=== PATIENT | female | born 1955 | race Caucasian/White ===

== ENCOUNTER → 2018-11-14 | Outpatient (CLI) | payer OTHER ==
[~2018-11-14] MED LIST: ALL DAY ALLERGY10 MG PO; Amitriptyline H10 MG PO; BACTRIM DS 8001 TA1 PO; CYMBALTA60 MG PO; DIOVAN160 MG PO; FLOMAX0.4 MG PO; FLUTICAS P0.05 MG/AC NS; LORAZEPAM0.5 MG PO; LYRICA100 MG PO; MEDROL DOSEPAK4 MG PO; METFORMIN HCL500 MG PO; MYSOLINE50 MG PO; PARAFON FORTE500 MG PO; PERCOCET 325 MG1 TA2 PO; PERCOCET 500 MG1 TAB PO; PREDNICOT20 MG PO; PRINIVIL20 MG PO; PROPRANOLOL10 MG PO; PROTONIX40 MG PO; ROPINIROLE HYD0.5 MG PO; WARFARIN SOD2 MG PO; ZOFRAN ODT4 MG SL; ZOFRAN ODT8 MG PO
== END | disposition home or self-care (01) ==
LOC: MAMMO 15:00
DX: Z12.31 Encounter for screening mammogram for malignant neoplasm of breast (principal); E11.42 Type 2 diabetes mellitus with diabetic polyneuropathy; I82.409 Acute embolism and thrombosis of unspecified deep veins of unspecified lower extremity; G25.0 Essential tremor

== ENCOUNTER 2020-10-15 17:14 | Emergency (ER) | payer OTHER ==
[~2020-10-15] VITALS: Ht 172.7 cm; Wt 145.1 kg
[~2020-10-15 17:14] MED LIST changes: +FLONASE ALLERG9.9 ML NAS; -FLUTICAS P0.05 MG/AC NS; -MYSOLINE50 MG PO; +Mysoline50 MG PO
[2020-10-16] MEDS ORDERED: BACLOFEN5 MG PO (22:38)
[2020-10-16] MEDS ORDERED: NEUPRO1 EACH T (22:42)
== END 2020-10-15 18:00 | disposition left against medical advice (07) ==
LOC: ED 17:14
DX: R60.0 Localized edema (principal); Z53.21 Procedure and treatment not carried out due to patient leaving prior to being seen by health care provider

== ENCOUNTER 2020-10-16 13:46 | Inpatient (IN) | payer OTHER ==
[~2020-10-16] VITALS: Ht 172.7 cm; Wt 157.2 kg
[2020-10-16 14:00] VITALS: BP 139/56
[2020-10-16 14:26] LABS: BASO % 0.5 % (0.0-1.0); EOS # 0.3 10*3/uL (0.0-0.4); EOS % 3.2 % (1.0-4.0); HEMATOCRIT 41.9 % (37.0-47.0); LYMPH # 1.5 10*3/uL (1.3-4.4); LYMPH % 18.8 % (27.0-41.0); MEAN CELL VOLUME 94.6 fl (81.0-99.0); MEAN CORPUSCULAR HGB 29.3 pg (27.0-31.0); MEAN PLATELET VOLUME 9.1 fl (9.6-12.3); MONO # 0.5 10*3/uL (0.1-1.0); NEUT # 5.8 10*3/uL (2.3-7.9); NEUT % 71.3 % (47.0-73.0); PLATELET COUNT AUTOMATED 287 10*3/uL (130-400); RED BLOOD COUNT 4.43 10*6/uL (4.10-5.10); RED CELL DISTRI WIDTH 14.5 % (0-14.5); WHITE BLOOD COUNT 8.1 10*3/uL (4.8-10.8)
[2020-10-16 14:46] LABS: ALBUMIN 2.5 gm/dl (3.1-4.5); ALKALINE PHOSPHATASE 76 U/L (45-117); BUN 25 mg/dl (7-24); CHLORIDE 108 mmol/L (98-107); CREATININE 1.04 mg/dL (0.55-1.02); POTASSIUM 4.5 mmol/L (3.5-5.1); SGOT/AST 21 IU/L (3-35); SGPT/ALT 24 U/L (12-78); SODIUM 141 mmol/L (136-145); TOTAL PROTEIN 6.8 gm/dL (6.4-8.2)
[2020-10-16 15:22] LABS: ACT PARTIAL THROMBO TIME 61.8 SECONDS (20.0-32.1); INTERNATIONAL NORM RATIO 2.9 (2.0-3.5)
[2020-10-16 22:29] VITALS: BP 116/42
[2020-10-16] MEDS ORDERED: BACLOFEN5 MG PO (22:38)
[2020-10-16] MEDS ORDERED: NEUPRO1 EACH T (22:42)
[2020-10-16 23:15] VITALS: BP 145/62
[2020-10-17] MEDS ORDERED: Coumadin10 MG PO (06:30)
[2020-10-17] MEDS ORDERED: CETIRIZINE10 MG PO (06:32)
[2020-10-17] MEDS ORDERED: ROPINIROLE HYDRO2 MG PO (06:35)
[2020-10-17] MEDS ORDERED: PRAMIPEXOLE DI0.5 MG PO (06:36)
[2020-10-17] MEDS ORDERED: DULOXETINE HCL60 MG PO (06:36)
[2020-10-17] MEDS ORDERED: LASIX20 MG PO (06:37)
[2020-10-17] MEDS ORDERED: K-TAB10 MEQ PO (06:38)
[2020-10-17] MEDS ORDERED: AMLODIPINE BESY10 MG PO (06:39)
[2020-10-17 07:09] LABS: BASO % 0.3 % (0.0-1.0); EOS # 0.3 10*3/uL (0.0-0.4); EOS % 2.8 % (1.0-4.0); HEMATOCRIT 37.5 % (37.0-47.0); LYMPH # 1.5 10*3/uL (1.3-4.4); LYMPH % 14.7 % (27.0-41.0); MEAN CORPUSCULAR HGB 29.1 pg (27.0-31.0); MEAN CORPUSCULAR HGB CONC 30.9 g/dl (33.0-37.0); MEAN PLATELET VOLUME 9.6 fl (9.6-12.3); MONO # 0.7 10*3/uL (0.1-1.0); MONO % 7.3 % (3.0-9.0); NEUT # 7.6 10*3/uL (2.3-7.9); NEUT % 74.6 % (47.0-73.0); PLATELET COUNT AUTOMATED 266 10*3/uL (130-400); RED BLOOD COUNT 3.99 10*6/uL (4.10-5.10); RED CELL DISTRI WIDTH 14.5 % (0-14.5); WHITE BLOOD COUNT 10.1 10*3/uL (4.8-10.8)
[2020-10-17 07:20] LABS: INTERNATIONAL NORM RATIO 1.9 (2.0-3.5)
[2020-10-17 08:00] LABS: BUN 19 mg/dl (7-24); CHLORIDE 108 mmol/L (98-107); CREATININE 0.81 mg/dL (0.55-1.02); POTASSIUM 4.3 mmol/L (3.5-5.1); SODIUM 141 mmol/L (136-145)
[2020-10-17 09:07] VITALS: BP 117/54
[2020-10-17 12:00] VITALS: BP 110/70
[2020-10-17 16:00] VITALS: BP 152/64
[2020-10-17 20:00] VITALS: BP 119/55
[2020-10-18] VITALS: BP 132/47
[2020-10-18 06:52] LABS: BASO % 0.5 % (0.0-1.0); EOS # 0.3 10*3/uL (0.0-0.4); EOS % 3.2 % (1.0-4.0); HEMATOCRIT 37.7 % (37.0-47.0); LYMPH # 1.8 10*3/uL (1.3-4.4); LYMPH % 21.6 % (27.0-41.0); MEAN CELL VOLUME 93.3 fl (81.0-99.0); MEAN PLATELET VOLUME 9.8 fl (9.6-12.3); MONO # 0.5 10*3/uL (0.1-1.0); MONO % 6.3 % (3.0-9.0); NEUT # 5.6 10*3/uL (2.3-7.9); NEUT % 68.2 % (47.0-73.0); PLATELET COUNT AUTOMATED 265 10*3/uL (130-400); RED BLOOD COUNT 4.04 10*6/uL (4.10-5.10); RED CELL DISTRI WIDTH 14.2 % (0-14.5); WHITE BLOOD COUNT 8.2 10*3/uL (4.8-10.8)
[2020-10-18 07:01] LABS: INTERNATIONAL NORM RATIO 1.3 (2.0-3.5)
[2020-10-18 07:20] LABS: BUN 18 mg/dl (7-24); CHLORIDE 106 mmol/L (98-107); CREATININE 0.82 mg/dL (0.55-1.02); SODIUM 140 mmol/L (136-145)
[2020-10-18 08:00] VITALS: BP 123/55; BP 138/50
[2020-10-18 12:00] VITALS: BP 138/48
[2020-10-18 16:00] VITALS: BP 130/63
[2020-10-18 20:00] VITALS: BP 139/54
[2020-10-19] VITALS: BP 100/42
[2020-10-19 06:43] LABS: BASO % 0.5 % (0.0-1.0); EOS # 0.3 10*3/uL (0.0-0.4); EOS % 3.5 % (1.0-4.0); HEMATOCRIT 38.1 % (37.0-47.0); LYMPH # 1.6 10*3/uL (1.3-4.4); LYMPH % 20.3 % (27.0-41.0); MEAN CELL VOLUME 93.6 fl (81.0-99.0); MEAN PLATELET VOLUME 9.6 fl (9.6-12.3); MONO # 0.6 10*3/uL (0.1-1.0); MONO % 7.1 % (3.0-9.0); NEUT # 5.5 10*3/uL (2.3-7.9); NEUT % 68.3 % (47.0-73.0); PLATELET COUNT AUTOMATED 257 10*3/uL (130-400); RED BLOOD COUNT 4.07 10*6/uL (4.10-5.10); RED CELL DISTRI WIDTH 14.2 % (0-14.5)
[2020-10-19 06:58] LABS: INTERNATIONAL NORM RATIO 1.4 (2.0-3.5)
[2020-10-19 08:00] VITALS: BP 118/50; BP 144/70
[2020-10-19 10:26] VITALS: BP 100/42
[2020-10-19 12:00] VITALS: BP 104/56
[2020-10-19 16:00] VITALS: BP 126/57
[2020-10-19 20:00] VITALS: BP 106/52
[2020-10-20] VITALS: BP 112/74
[2020-10-20 06:29] LABS: BASO % 0.3 % (0.0-1.0); EOS # 0.2 10*3/uL (0.0-0.4); EOS % 2.5 % (1.0-4.0); HEMATOCRIT 39.1 % (37.0-47.0); LYMPH # 1.8 10*3/uL (1.3-4.4); LYMPH % 20.7 % (27.0-41.0); MEAN CELL VOLUME 94.7 fl (81.0-99.0); MEAN CORPUSCULAR HGB 29.8 pg (27.0-31.0); MEAN CORPUSCULAR HGB CONC 31.5 g/dl (33.0-37.0); MEAN PLATELET VOLUME 9.8 fl (9.6-12.3); MONO # 0.6 10*3/uL (0.1-1.0); MONO % 6.5 % (3.0-9.0); NEUT # 6.2 10*3/uL (2.3-7.9); NEUT % 69.8 % (47.0-73.0); PLATELET COUNT AUTOMATED 279 10*3/uL (130-400); RED BLOOD COUNT 4.13 10*6/uL (4.10-5.10); RED CELL DISTRI WIDTH 14.3 % (0-14.5); WHITE BLOOD COUNT 8.9 10*3/uL (4.8-10.8)
[2020-10-20 06:49] LABS: INTERNATIONAL NORM RATIO 1.7 (2.0-3.5)
[2020-10-20 06:50] LABS: BUN 21 mg/dl (7-24); CHLORIDE 104 mmol/L (98-107); CREATININE 1.08 mg/dL (0.55-1.02); POTASSIUM 3.9 mmol/L (3.5-5.1); SODIUM 141 mmol/L (136-145)
[2020-10-20 08:00] VITALS: BP 134/72
[2020-10-20 12:00] VITALS: BP 138/74
[2020-10-20 16:00] VITALS: BP 144/50
[2020-10-20] MEDS ORDERED: SEPTDS PO ×2 (16:22)
[2020-10-20 20:00] VITALS: BP 118/49
[2020-10-21] VITALS: BP 113/48
[2020-10-21 08:00] VITALS: BP 138/52
[2020-10-21 12:00] VITALS: BP 128/56
[2020-10-21 16:19] VITALS: BP 130/49
[2020-10-21 20:00] VITALS: BP 126/52
[2020-10-22] VITALS: BP 119/44
[2020-10-22 06:56] LABS: BUN 23 mg/dl (7-24)
[2020-10-22 08:00] VITALS: BP 124/40
[2020-10-22] MEDS ORDERED: OMNICEF300 MG PO (09:26)
[2020-10-22] MEDS ORDERED: VIBRAMYCIN100 MG PO (09:26)
[2020-10-22 12:00] VITALS: BP 127/52
[2020-10-22 16:00] VITALS: BP 124/65
[2020-10-22 20:00] VITALS: BP 100/50
[2020-10-23] VITALS: BP 132/88
[2020-10-23 06:13] LABS: BASO # 0.1 10*3/uL (0.0-0.1); BASO % 0.7 % (0.0-1.0); EOS # 0.6 10*3/uL (0.0-0.4); EOS % 6.7 % (1.0-4.0); HEMATOCRIT 40.6 % (37.0-47.0); LYMPH % 23.6 % (27.0-41.0); MEAN CORPUSCULAR HGB 29.6 pg (27.0-31.0); MEAN CORPUSCULAR HGB CONC 31.5 g/dl (33.0-37.0); MEAN PLATELET VOLUME 9.9 fl (9.6-12.3); MONO # 0.6 10*3/uL (0.1-1.0); MONO % 7.5 % (3.0-9.0); NEUT # 5.1 10*3/uL (2.3-7.9); NEUT % 61.4 % (47.0-73.0); PLATELET COUNT AUTOMATED 263 10*3/uL (130-400); RED BLOOD COUNT 4.32 10*6/uL (4.10-5.10); RED CELL DISTRI WIDTH 14.4 % (0-14.5); WHITE BLOOD COUNT 8.4 10*3/uL (4.8-10.8)
[2020-10-23 08:00] VITALS: BP 134/57
[2020-10-23] MEDS ORDERED: LASIX40 MG PO (10:27)
[2020-10-23] MEDS ORDERED: K-TAB20 MEQ PO (10:27)
[2020-10-23 12:00] VITALS: BP 115/57
[2020-10-23 16:00] VITALS: BP 129/55
[2020-10-23 20:00] VITALS: BP 119/59
[2020-10-24] VITALS: BP 113/51
[2020-10-24 08:00] VITALS: BP 136/68
[2020-10-24 12:00] VITALS: BP 152/70
== END 2020-10-24 15:15 | disposition other institution (70) | DRG 602 ==
LOC: ED 13:46 → EDHOLD 16:15 → 5E 16:15
PROVIDERS: Emergency Medicine; Hospitalist; Podiatrist; Student in an Organized Health Care Education/Training Program; ADMIT Internal Medicine; ATTEND Internal Medicine
DX: L03.116 Cellulitis of left lower limb (principal); E43 Unspecified severe protein-calorie malnutrition; I26.99 Other pulmonary embolism without acute cor pulmonale; D68.59 Other primary thrombophilia; Z68.43 Body mass index [BMI] 50.0-59.9, adult; E11.65 Type 2 diabetes mellitus with hyperglycemia; G25.0 Essential tremor; Z96.652 Presence of left artificial knee joint; L03.115 Cellulitis of right lower limb; I89.0 Lymphedema, not elsewhere classified; M19.90 Unspecified osteoarthritis, unspecified site; F32.9 Major depressive disorder, single episode, unspecified; E87.8 Other disorders of electrolyte and fluid balance, not elsewhere classified; F17.200 Nicotine dependence, unspecified, uncomplicated; E66.01 Morbid (severe) obesity due to excess calories; I10 Essential (primary) hypertension; G25.81 Restless legs syndrome; E11.42 Type 2 diabetes mellitus with diabetic polyneuropathy; I87.8 Other specified disorders of veins; Z20.822 Contact with and (suspected) exposure to COVID-19; Z90.710 Acquired absence of both cervix and uterus; Z83.3 Family history of diabetes mellitus; Z86.711 Personal history of pulmonary embolism; Z86.718 Personal history of other venous thrombosis and embolism; Z82.49 Family history of ischemic heart disease and other diseases of the circulatory system; Z80.1 Family history of malignant neoplasm of trachea, bronchus and lung; Z71.6 Tobacco abuse counseling; Z79.899 Other long term (current) drug therapy

== ENCOUNTER → 2022-10-27 | Outpatient (CLI) | payer OTHER ==
[~2022-10-27] MED LIST changes: +AMLODIPINE BESY10 MG PO; +BACLOFEN5 MG PO; +CETIRIZINE10 MG PO; +Coumadin10 MG PO; +DULOXETINE HCL30 MG PO; +DULOXETINE HCL60 MG PO; +FUROSEMIDE40 MG PO; +K-TAB10 MEQ PO; +K-TAB20 MEQ PO; +LASIX20 MG PO; +LASIX40 MG PO; +LISINOPRIL20 MG PO; +Lioresal PO; +METFORMIN HYDR500 MG PO; +NEUPRO1 EACH T; +OMNICEF300 MG PO; +PRAMIPEXOLE DI0.5 MG PO; +ROPINIROLE HYDRO2 MG PO; +ROPINIROLE HYDRO4 MG PO; +SEPTDS PO; +VIBRAMYCIN100 MG PO; +XARE20MG PO
== END | disposition home or self-care (01) ==
LOC: RESCLI 11:44
PROVIDERS: ATTEND Family Medicine
DX: Z13.9 Encounter for screening, unspecified (principal); L98.9 Disorder of the skin and subcutaneous tissue, unspecified; F32.9 Major depressive disorder, single episode, unspecified; I82.409 Acute embolism and thrombosis of unspecified deep veins of unspecified lower extremity; M54.9 Dorsalgia, unspecified; G25.81 Restless legs syndrome; E55.9 Vitamin D deficiency, unspecified; M19.90 Unspecified osteoarthritis, unspecified site; E11.9 Type 2 diabetes mellitus without complications; G20 Parkinson's disease; Z79.84 Long term (current) use of oral hypoglycemic drugs; Z79.01 Long term (current) use of anticoagulants; Z79.899 Other long term (current) drug therapy

== ENCOUNTER → 2022-11-15 | Outpatient (CLI) | payer OTHER | END | disposition home or self-care (01) | LOC: RAD 03:54 | PROVIDERS: ATTEND Internal Medicine | DX: Z12.31 Encounter for screening mammogram for malignant neoplasm of breast (principal); Z13.820 Encounter for screening for osteoporosis; E66.9 Obesity, unspecified; Z78.0 Asymptomatic menopausal state; Z90.711 Acquired absence of uterus with remaining cervical stump ==

== ENCOUNTER → 2022-12-07 | Outpatient (CLI) | payer OTHER | END | disposition home or self-care (01) | LOC: RESCLI 02:59 | PROVIDERS: ATTEND Internal Medicine | DX: F32.9 Major depressive disorder, single episode, unspecified (principal); I82.409 Acute embolism and thrombosis of unspecified deep veins of unspecified lower extremity; M54.9 Dorsalgia, unspecified; G25.81 Restless legs syndrome; E11.9 Type 2 diabetes mellitus without complications; I10 Essential (primary) hypertension; G62.9 Polyneuropathy, unspecified; J30.9 Allergic rhinitis, unspecified; Z98.890 Other specified postprocedural states; Z79.01 Long term (current) use of anticoagulants; Z79.899 Other long term (current) drug therapy ==

== ENCOUNTER → 2023-04-20 | Outpatient (CLI) | payer OTHER ==
[2023-04-20 12:19] LABS: BASO % 0.6 % (0.0-1.0); EOS # 0.2 10*3/uL (0.0-0.4); EOS % 2.1 % (1.0-4.0); HEMATOCRIT 47.6 % (37.0-47.0); LYMPH # 1.6 10*3/uL (1.3-4.4); LYMPH % 22.1 % (27.0-41.0); MEAN CELL VOLUME 90.8 fl (81.0-99.0); MEAN CORPUSCULAR HGB 29.4 pg (27.0-31.0); MEAN CORPUSCULAR HGB CONC 32.4 g/dl (33.0-37.0); MEAN PLATELET VOLUME 9.2 fl (9.6-12.3); MONO # 0.6 10*3/uL (0.1-1.0); MONO % 8.6 % (3.0-9.0); NEUT # 4.7 10*3/uL (2.3-7.9); NEUT % 66.6 % (47.0-73.0); PLATELET COUNT AUTOMATED 209 10*3/uL (130-400); RED BLOOD COUNT 5.24 10*6/uL (4.10-5.10); RED CELL DISTRI WIDTH 15.6 % (0-14.5); WHITE BLOOD COUNT 7.1 10*3/uL (4.8-10.8)
[2023-04-20 12:55] LABS: ALKALINE PHOSPHATASE 76 U/L (46-116); BUN 16 mg/dl (9-23); CHLORIDE 105 mmol/L (98-107); CHOLESTEROL 111 mg/dL (<200); LDL CHOLESTEROL 49 mg/dL (9-159); POTASSIUM 4.3 mmol/L (3.4-5.1); SGPT/ALT 10 U/L (10-49); TOTAL PROTEIN 6.5 gm/dL (6.0-8.0); TRIGLYCERIDES 101 mg/dl (<150)
[2023-04-20 13:02] LABS: VITAMIN D, 25-HYDROXY 20.3 ng/mL (30-100)
[2023-04-21 15:07] LABS: ANTI-DSDNA ANTIBODIES 1 IU/mL (0-9); ANTI-RNP ANTIBODIES <0.2 AI (0.0-0.9); ANTICHROMATIN ANTIBODIES <0.2 AI (0.0-0.9); ANTISCLERODERMA-70 AB <0.2 AI (0.0-0.9); SJOGREN ANTI-SS-A 0.4 AI (0.0-0.9); SJOREN AB, ANTI-SS-B 0.9 AI (0.0-0.9)
== END | disposition home or self-care (01) ==
LOC: RESCLI 03:23
PROVIDERS: Student in an Organized Health Care Education/Training Program; ATTEND Family Medicine
DX: E11.9 Type 2 diabetes mellitus without complications (principal); I10 Essential (primary) hypertension; G25.0 Essential tremor; I82.409 Acute embolism and thrombosis of unspecified deep veins of unspecified lower extremity; Z13.9 Encounter for screening, unspecified; L98.9 Disorder of the skin and subcutaneous tissue, unspecified; M54.9 Dorsalgia, unspecified; E78.5 Hyperlipidemia, unspecified; G25.81 Restless legs syndrome; E66.01 Morbid (severe) obesity due to excess calories; M48.00 Spinal stenosis, site unspecified; D68.9 Coagulation defect, unspecified; R32 Unspecified urinary incontinence; Z98.890 Other specified postprocedural states; Z90.710 Acquired absence of both cervix and uterus; Z79.01 Long term (current) use of anticoagulants; F17.210 Nicotine dependence, cigarettes, uncomplicated; Z79.84 Long term (current) use of oral hypoglycemic drugs; Z79.899 Other long term (current) drug therapy; E55.9 Vitamin D deficiency, unspecified

== ENCOUNTER → 2023-11-16 | Outpatient (CLI) | payer OTHER ==
[~2023-11-16] MED LIST changes: +CEPHALEXIN500 M1 PO; +KENALOG 0.025%15 GM T; +REXULTI3 MG PO
== END | disposition home or self-care (01) ==
LOC: ORTHO 01:01
PROVIDERS: ATTEND Orthopaedic Surgery
DX: M17.11 Unilateral primary osteoarthritis, right knee (principal); M25.561 Pain in right knee